=== PATIENT | male | born 1990 ===

== ENCOUNTER 2017-11-15 00:31 | Emergency (ER) | payer OTHER ==
[~2017-11-15] VITALS: Ht 172.7 cm; Wt 65.0 kg
[2017-11-15 00:41] VITALS: BP 122/54; PULSE 71; RESP 16; TEMP 99.8; O2SAT 98
--- NOTE | 2017-11-15 02:15 | RADRPT ---
EXAM DATE/TIME: 11/15/2017 01:41 [facility] COMPARISON: No previous studies available for comparison. INDICATIONS : Right elbow pain from longboard injury. MEDICAL HISTORY : None. SURGICAL HISTORY : None. ENCOUNTER: Initial ACUITY: 1 day PAIN SCORE: 10/10 LOCATION: Right elbow. FINDINGS: Multiple view examination of the right elbow demonstrates no soft tissue swelling, joint effusion, or fracture. The osseous structures are in normal alignment. Bony mineralization is normal. CONCLUSION: 1. No acute fracture or dislocation. Isidro Chapman MD on November 15, 2017 at 2:13 Board Certified Radiologist. This report was verified electronically.
--- NOTE | 2017-11-15 02:15 | RADRPT ---
EXAM DATE/TIME: 11/15/2017 01:41 [facility] COMPARISON: No previous studies available for comparison. INDICATIONS : Right forearm pain from longboard injury. MEDICAL HISTORY : None. SURGICAL HISTORY : None. ENCOUNTER: Initial ACUITY: 1 day PAIN SCORE: 10/10 LOCATION: Right proximal forearm. FINDINGS: Two view examination of the right forearm demonstrates no evidence of fracture or dislocation. Bony mineralization is normal. The soft tissue structures are intact. CONCLUSION: 1. No acute fracture or dislocation. sIidro Chapman MD on November 15, 2017 at 2:14 Board Certified Radiologist. This report was verified electronically.
--- NOTE | 2017-11-15 03:10 | PD ---
HPI Chief Complaint: Injury Time Seen by Provider: 03:02 Travel History International Travel<30 days: No Contact w/Intl Traveler<30days: No Traveled to known affect area: No History of Present Illness HPI The patient is a 27-year-old male that was on a long board and landed on his right arm/elbow at 7 PM yesterday. He rolled onto the ground. He complains of persistent pain at, above and below the elbow. He denies any numbness or weakness and is able to move and feel his hand normally. He complains of a sharp, shooting pain of 8/10. PFSH Past Medical History Asthma: Yes (as a kid) Diminished Hearing: No Tetanus Vaccination: Unknown Influenza Vaccination: No ?: Not Past Surgical History Surgical History: No Previous Surgery Social History Alcohol Use: Yes (occasional) Tobacco Use: No (quit 3 yrs ago) Substance Use: Yes (marijuana) Allergies-Medications (Allergen,Severity, Reaction): Coded Allergies: No Known Allergies (Unverified , 11/15/17) Reported Meds & Prescriptions Reported Meds & Active Scripts Active Percocet (Oxycodone-Acetaminophen) 5-325 mg Tab 1-2 Tab PO Q6H PRN Review of Systems Except as stated in HPI: all other systems reviewed are Neg Physical Exam Narrative GENERAL: Well-nourished, well-developed patient in moderate apparent distress with his right arm discomfort. His vital signs show blood pressure 122/54 with temperature 99.8 but are otherwise normal. SKIN: Focused skin assessment warm/dry. HEAD: Normocephalic. EYES: No scleral icterus. No injection or drainage. NECK: Supple, trachea midline. No JVD or lymphadenopathy. CARDIOVASCULAR: Regular rate and rhythm without murmurs, gallops, or rubs. RESPIRATORY: Breath sounds equal bilaterally. No accessory muscle use. GASTROINTESTINAL: Abdomen soft, non-tender, nondistended. MUSCULOSKELETAL: No cyanosis, or edema. There is tenderness at and above the elbow but no bony deformity is present. There are no contusions present. There is no swelling present. He has good capillary refill and pinprick sensation on the right fingers. BACK: Nontender without obvious deformity. No CVA tenderness. Data Data Last Documented VS Vital Signs Date Time Temp Pulse Resp B/P (MAP) Pulse Ox O2 Delivery O2 Flow Rate FiO2 11/15/17 01:21 18 98 Room Air 11/15/17 00:41 99.8 71 122/54 (76) Orders Orders Elbow, Complete (4 Vws) (11/15/17 ) Forearm (2vws) (11/15/17 ) Ketorolac Inj (Toradol Inj) (11/15/17 03:15) Humerus (Min 2vws) (11/15/17 03:03) Oxycodone-Acetamin 7.5-325 Mg (Percocet (11/15/17 03:45) Splint Or Brace Apply/Monitor (11/15/17 03:41) Wound Care (11/15/17 03:42) Tetanus/Diphtheria Tox Adult (Tetanus/Di (11/15/17 03:45) MDM Medical Decision Making Medical Screen Exam Complete: Yes Emergency Medical Condition: Yes Medical Record Reviewed: Yes Interpretation(s) X-rays of the right elbow show no acute fracture or dislocation. X-rays of the right forearm show no acute fracture or dislocation. X-rays of the right humerus show no acute fracture or dislocation. Differential Diagnosis Fracture humerus, fracture elbow, fracture forearm, compartment syndrome-highly unlikely, contusion humerus, contusion elbow, contusion forearm Narrative Course The patient contusion/abrasion of the right arm. His pain is much more than one would expect for a simple contusion/abrasion of the right arm. If not better in 24-48 hours, he should see an orthopedic physician. He is given Percocet 5 for pain and a sling. He is given work/school excuses. Diagnosis Primary Impression: Contusion of right arm Additional Impression: Abrasion of right arm Additional Instructions: As we discussed, if your pain persist beyond a day or 2 you should follow-up with orthopedics and get a second opinion. This pain is much more than one would expect for simple contusion/abrasion of the arm. Med/Other Pt SpecificInfo: Prescription(s) given Scripts Oxycodone-Acetaminophen (Percocet) 5-325 mg Tab 1-2 TAB PO Q6H Y for PAIN, #28 TAB 0 Refills Prov: Jake Farias MD 11/15/17 Disposition: 01 DISCHARGE HOME Condition: Stable Jake Farias MD Nov 15, 2017 03:10
[2017-11-15] MEDS ORDERED: KETOROLAC TROMETHAMINE 60 MG/2 ML (IM) VIAL IM ONE (03:15)
--- NOTE | 2017-11-15 03:29 | RADRPT ---
EXAM DATE/TIME: 11/15/2017 03:07 [facility] COMPARISON: No previous studies available for comparison. INDICATIONS : Right arm pain after longboard injury. MEDICAL HISTORY : None. SURGICAL HISTORY : None. ENCOUNTER: Initial ACUITY: 1 day PAIN SCORE: 10/10 LOCATION: Right arm FINDINGS: Two view examination of the right humerus demonstrates no evidence of fracture or dislocation. Bony mineralization is normal. The soft tissue structures are intact. CONCLUSION: 1. No acute fracture or dislocation. Isidro Chapman MD on November 15, 2017 at 3:28 Board Certified Radiologist. This report was verified electronically.
[2017-11-15] MEDS ORDERED: oxyCODONE/ACETAMINOPHEN 7.5 MG/325 MG TAB PO ONE (03:45)
[2017-11-15] MEDS ORDERED: TETANUS/DIPHTHERIA TOXOID ADULT 0.5 ML VIAL IM ONE (03:45)
[2017-11-15] MEDS ORDERED: PERC5TAB12 PO (03:46)
[2017-11-15 04:29] VITALS: RESP 16
[2017-11-15 04:34] VITALS: BP 108/60
== END 2017-11-15 04:39 | disposition home or self-care (01) ==
LOC: PHED 00:31
DX: S40.021A Contusion of right upper arm, initial encounter (principal); S40.811A Abrasion of right upper arm, initial encounter; V00.131A Fall from skateboard, initial encounter; Y93.51 Activity, roller skating (inline) and skateboarding; Z23 Encounter for immunization; Z87.891 Personal history of nicotine dependence
CPT/HCPCS: 73060; 73080; 73090; 90471; 90714; 96372; 99283; J1885